=== PATIENT | male | born 1970 | race Caucasian/White ===

== ENCOUNTER 2019-02-22 07:37 | Observation (INO) | payer BC ==
--- NOTE | 2019-02-22 08:14 | ED ---
General Adult HPI - General Chief complaint: Chest Pain Stated complaint: pain in back between shoulder blades Time Seen by Provider: 02/22/19 07:40 Source: patient, RN notes reviewed Mode of arrival: ambulatory Limitations: no limitations - History of Present Illness Initial comments: This a 48-year-old male who presents emergency Department with a history of some anxiety and reflux. Patient denies any history of high blood pressure high cholesterol diabetes or smoking. Patient states he has no significant family history of heart disease or any family history of aneurysms. Patient states last night his stomach was upset quite a bit and making a lot of noise took some antacids that point. Patient states today while sitting in a meeting he started having some mid back pain between the shoulders last 1-2 minutes and then went away came back multiple times each time lasting 1-2 minutes and always going away. Patient denies any radiation of the pain. Patient denies any chest pain palpitations difficulty breathing shortness of breath. Patient denies any neck pain or arm pain. Patient states he has not had any pain since she's been in the emergency department. Patient states when it first occurred he thought it was his heartburn so he took some antacids and one aspirin. Patient states she does get anxiety quite a bit but he hasn't had back pain versus anxiety in the past. Patient denies any swelling to his legs or calf tenderness. Patient denies any abdominal pain patient denies nausea vomiting or diarrhea. Patient states he has had no upper respiratory infection and has been coughing lately. On the way here patient felt the pain was getting so severe that he wanted the dolly driver's faster. - Related Data Home Medications Medication Instructions Recorded Confirmed ALPRAZolam [Xanax] 0.125 mg PO DAILY PRN 02/22/19 02/22/19 Fish Oil/Dha/Epa [Fish Oil 1,200 1 cap PO DAILY 02/22/19 02/22/19 mg Fish Oil] Flaxseed Oil [[place]-3 Flaxseed Oil] 1,000 mg PO DAILY 02/22/19 02/22/19 Multivitamins, Thera [Multivitamin 1 tab PO DAILY 02/22/19 02/22/19 (formulary)] buPROPion HCL [Wellbutrin XL] 150 mg PO HS 02/22/19 02/22/19 Allergies Allergy/AdvReac Type Severity Reaction Status Date / Time No Known Allergies Allergy Verified 02/22/19 08:13 Review of Systems ROS Statement: Those systems with pertinent positive or pertinent negative responses have been documented in the HPI. ROS Other: All systems not noted in ROS Statement are negative. Past Medical History Past Medical History: GERD/Reflux, Hyperlipidemia History of Any Multi-Drug Resistant Organisms: None Reported Past Surgical History: Orthopedic Surgery, Tonsillectomy Past Psychological History: Anxiety Smoking Status: Never smoker Past Alcohol Use History: Occasional Past Drug Use History: None Reported General Exam - General Exam Comments Initial Comments: GENERAL: Patient is well-developed and well-nourished. Patient is nontoxic and well-h ydrated and is in mild distress. ENT: Neck is soft and supple. No significant lymphadenopathy is noted. Oropharynx is clear. Moist mucous membranes. Neck has full range of motion without eliciting any pain. EYES: The sclera were anicteric and conjunctiva were pink and moist. Extraocular move ments were intact and pupils were equal round and reactive to light. Eyelids were unremarkable. PULMONARY: Unlabored respirations. Good breath sounds bilaterally. No audible rales rhonchi or wheezing was noted. CARDIOVASCULAR: There is a regular rate and rhythm without any murmurs gallops or rubs. ABDOMEN: Soft and nontender with normal bowel sounds. No palpable organomegaly was noted. There is no palpable pulsatile mass. SKIN: Skin is clear with no lesions or rashes and otherwise unremarkable. NEUROLOGIC: Patient is alert and oriented x3. Cranial nerves II through XII are grossly intact. Motor and sensory are also intact. Normal speech, volume and content. Symmetrical smile. MUSCULOSKELETAL: Normal extremities with adequate strength and full range of motion. No lower e xtremity swelling or edema. No calf tenderness. LYMPHATICS: No significant lymphadenopathy is noted PSYCHIATRIC: Normal psychiatric evaluation. Limitations: no limitations Course Vital Signs 02/22/19 02/22/19 07:40 08:30 Temperature 97.9 F Pulse Rate 74 75 Respiratory 18 14 Rate Blood Pressure 128/84 138/97 O2 Sat by Pulse 98 96 Oximetry Medical Decision Making - Medical Decision Making EKG shows normal sinus rhythm at 71 bpm HI interval 254 QRS is 76 QT intervals 422 QTC is 458. Patient's EKG shows no ST segment elevation or depression or T wave abnormalities are noted. Patient's chest x-ray shows no acute abnormality. Patient states he has had no pain since being in the emergency department. - Lab Data Result diagrams: 02/22/19 08:05 02/22/19 08:05 Lab Results 02/22/19 02/22/19 02/22/19 Range/Units 08:05 08:05 08:05 WBC 7.2 (3.8-10.6) k/uL RBC 4.83 (4.30-5.90) m/uL Hgb 15.1 (13.0-17.5) gm/dL Hct 43.4 (39.0-53.0) % MCV 89.8 (80.0-100.0) fL MCH 31.2 (25.0-35.0) pg MCHC 34.8 (31.0-37.0) g/dL RDW 12.4 (11.5-15.5) % Plt Count 226 (150-450) k/uL Neutrophils % 74 % Lymphocytes % 16 % Monocytes % 7 % Eosinophils % 1 % Basophils % 1 % Neutrophils # 5.3 (1.3-7.7) k/uL Lymphocytes # 1.1 (1.0-4.8) k/uL Monocytes # 0.5 (0-1.0) k/uL Eosinophils # 0.1 (0-0.7) k/uL Basophils # 0.1 (0-0.2) k/uL PT 10.2 (9.0-12.0) sec INR 0.9 (<1.2) APTT 21.9 L (22.0-30.0) sec Sodium 139 (137-145) mmol/L Potassium 4.8 (3.5-5.1) mmol/L Chloride 106 (98-107) mmol/L Carbon Dioxide 21 L (22-30) mmol/L Anion Gap 12 mmol/L BUN 20 (9-20) mg/dL Creatinine 1.14 (0.66-1.25) mg/dL Est GFR (CKD-EPI)AfAm 87 (>60 ml/min/1.73 sqM) Est GFR (CKD-EPI)NonAf 75 (>60 ml/min/1.73 sqM) Glucose 109 H (74-99) mg/dL Calcium 10.0 (8.4-10.2) mg/dL Magnesium 2.0 (1.6-2.3) mg/dL Total Bilirubin 0.8 (0.2-1.3) mg/dL AST 46 (17-59) U/L ALT 57 (21-72) U/L Alkaline Phosphatase 62 (38-126) U/L Troponin I (0.000-0.034) ng/mL Total Protein 8.0 (6.3-8.2) g/dL Albumin 4.8 (3.5-5.0) g/dL 02/22/19 Range/Units 08:05 WBC (3.8-10.6) k/uL RBC (4.30-5.90) m/uL Hgb (13.0-17.5) gm/dL Hct (39.0-53.0) % MCV (80.0-100.0) fL MCH (25.0-35.0) pg MCHC (31.0-37.0) g/dL RDW (11.5-15.5) % Plt Count (150-450) k/uL Neutrophils % % Lymphocytes % % Monocytes % % Eosinophils % % Basophils % % Neutrophils # (1.3-7.7) k/uL Lymphocytes # (1.0-4.8) k/uL Monocytes # (0-1.0) k/uL Eosinophils # (0-0.7) k/uL Basophils # (0-0.2) k/uL PT (9.0-12.0) sec INR (<1.2) APTT (22.0-30.0) sec Sodium (137-145) mmol/L Potassium (3.5-5.1) mmol/L Chloride (98-107) mmol/L Carbon Dioxide (22-30) mmol/L Anion Gap mmol/L BUN (9-20) mg/dL Creatinine (0.66-1.25) mg/dL Est GFR (CKD-EPI)AfAm (>60 ml/min/1.73 sqM) Est GFR (CKD-EPI)NonAf (>60 ml/min/1.73 sqM) Glucose (74-99) mg/dL Calcium (8.4-10.2) mg/dL Magnesium (1.6-2.3) mg/dL Total Bilirubin (0.2-1.3) mg/dL AST (17-59) U/L ALT (21-72) U/L Alkaline Phosphatase (38-126) U/L Troponin I <0.012 (0.000-0.034) ng/mL Total Protein (6.3-8.2) g/dL Albumin (3.5-5.0) g/dL Disposition Clinical Impression: Atypical angina Disposition: ADMITTED IP TO THIS HOSP Referrals: Adalberto Wick DO [Primary Care Provider] - 1-2 days Time of Disposition: 09:47
[2019-02-22 08:46] LABS: INR 0.9 (<1.2); Partial Thromboplastin Time 21.9 sec (22.0-30.0); Prothrombin Time 10.2 sec (9.0-12.0)
[2019-02-22 08:49] LABS: Albumin 4.8 g/dL (3.5-5.0); Total Bilirubin 0.8 mg/dL (0.2-1.3)
[2019-02-22 08:50] LABS: Potassium 4.8 mmol/L (3.5-5.1)
--- NOTE | 2019-02-22 08:52 | XR ---
EXAMINATION TYPE: XR chest 2V DATE OF EXAM: 02/22/2019 COMPARISON: None INDICATION: Chest pain TECHNIQUE: Frontal and lateral views of the chest are obtained. FINDINGS: The heart size is normal. The pulmonary vasculature is normal. The lungs are clear. IMPRESSION: 1. No acute pulmonary process.
[2019-02-22 08:54] LABS: Basophils # (A) 0.1 k/uL (0-0.2); Basophils % (A) 1 %; Eosinophils # (A) 0.1 k/uL (0-0.7); Eosinophils % (A) 1 %; HCT 43.4 % (39.0-53.0); HGB 15.1 gm/dL (13.0-17.5); Lymphocytes # (A) 1.1 k/uL (1.0-4.8); Lymphocytes % (A) 16 %; MCH 31.2 pg (25.0-35.0); MCHC 34.8 g/dL (31.0-37.0); MCV 89.8 fL (80.0-100.0); Monocytes # (A) 0.5 k/uL (0-1.0); Monocytes % (A) 7 %; Neutrophils # (A) 5.3 k/uL (1.3-7.7); Neutrophils % (A) 74 %; Platelet Count 226 k/uL (150-450); RBC 4.83 m/uL (4.30-5.90); RDW 12.4 % (11.5-15.5); WBC 7.2 k/uL (3.8-10.6)
[2019-02-22] MEDS ORDERED: NITROGLYCERIN SL TABS 0.4 MG TAB SUBLINGUAL PRN (09:47)
[2019-02-22 10:03] VITALS: RESP 18
[2019-02-22 10:49] VITALS: BMI 28.7
[2019-02-22] MEDS ORDERED: NITROGLYCERIN OINT 1 INCH/GM PACKET TOPICAL SCH (12:00)
[2019-02-22] MEDS: amLODIPine 5 MG TAB PO SCH (13:28)
--- NOTE | 2019-02-22 14:28 | P.CRDCN ---
History of Present Illness History of present illness: This is a pleasant 48-year-old male past medical history significant for dyslipidemia and anxiety. He denies prior history of coronary artery disease or diabetes mellitus. He states his physician has told him he may likely require antihypertensives in the near future however currently he just takes [id number] herbal supplements. We have asked to see him in consultation secondary to chest discomfort. He states while at work this morning in a meeting he started feeling a burning achy sensation in his mid- upper back. No radiation to the arm, back, neck or jaw. He denies associated shortness of breath, dizziness, nausea, vomiting or diaphoresis. He said his co-workers told him he look joyce. He took an over the counter antacid, aspirin and half of a xanax with little to no relief. By the time he got to the hospital his symptoms had subsided. He is seen and examined sitting up in bed in no acute distress. He states he does continue to feel a dull achy feeling in the mid upper back. No pain in the chest throughout this episode. He has been struggling with anxiety for the recent 1 year and has had a couple what he calls anxiety attacks and has been evaluated at [facility] in [place] in October 2018 with a stress echo that he states was normal and he walked for 16 minutes on the treadmill. He has been following closely with his PCP and has been working on lowering his cholesterol with diet and exercise. He takes some herbal supplements but no prescribed meds for hypertension or dyslipidemia. EKG reveals sinus mechanism with no acute ST or T-wave abnormalities. Chest xray is negative for an acute cardiopulmonary process. Laboratory data reviewed, cardiac enzymes negative x1. He takes no daily cardiac medications. At the time of my exam: CONSTITUTIONAL: Denies fever. Denies chills. EYES: Denies blurred vision. Denies vision changes. Denies eye pain. EARS, NOSE, MOUTH & THROAT: Denies headache. Denies sore throat. Denies ear pain. CARDIOVASCULAR: Denies chest pain. Denies shortness of breath. Denies orthopnea. Denies PND. Denies palpitations. RESPIRATORY: Denies cough. GASTROINTESTINAL: Denies abdominal pain. Denies diarrhea. Denies constipation. Denies nausea. Denies vomiting. MUSCULOSKELETAL: Denies myalgias. INTEGUMENTARY: Denies pruitis. Denies rash. NEUROLOGIC: Denies numbness. Denies tingling. Denies weakness. PSYCHIATRIC: Denies anxiety. Denies depression. ENDOCRINE: Denies fatigue. Denies weight change. Denies polydipsia. Denies polyurina. GENITOURINARY: Denies burning, hematuria or urgency with micturation. HEMATOLOGIC: Denies history of anemia. Denies bleeding. Blood pressure 160/88 heart rate 65 afebrile maintaining oxygen saturation on room air GENERAL: This is a 48-year-old male in no apparent distress at the time of my examination. HEENT: Head is atraumatic, normocephalic. Pupils are equal, round. Sclerae anicteric. Conjunctivae are clear. Mucous membranes of the mouth are moist. Neck is supple. There is no jugular venous distention. No carotid bruit is heard. LUNGS: Clear to auscultation no wheezes, rales or rhonchi. No chest wall tenderness is noted on palpation or with deep breathing. HEART: Regular rate and rhythm without murmurs, rubs or gallops. S1 and S2 heard. ABDOMEN: Soft, nontender. Bowel sounds are heard. No organomegaly noted. EXTREMITIES: No evidence of peripheral edema and no calf tenderness noted. VASCULAR: Radial and dorsalis pedis pulses palpated, no evidence of clubbing. NEUROLOGIC: Patient is awake, alert and oriented x3. ASSESSMENT Back pain, atypical for angina. Hypertension Dyslipidemia Anxiety PLAN Initiate on amlodipine 5 mg daily and lopressor 12.5 mg BID. Obtain stat CT of the chest to assess the aorta. Obtain 2D echocardiogram and doppler study to assess cardiac structure and function. Continue to obtain serial cardiac enzymes to rule out an acute event. Request report of recent stress test at [facility] in [place] October 2018. If enzymes are normal he may be discharged this evening on new anti-hypertensive regimen. Follow up with Dr. Montesinos in 2 weeks. Thank you kindly for this consultation. Nurse Practitioner note has been reviewed, I agree with a documented findings and plan of care. Patient was seen and examined. Past Medical History Past Medical History: GERD/Reflux, Hyperlipidemia Additional Past Medical History / Comment(s): Pt/spouse state since summer 2018, pt has had on and off elevated blood pressures, past chest pain with numbness/tingling to L arm which pt associated with anxiety, stress test summer 2018 at [facility] states was normal, cough/body aches since 02/20/19, migraines. History of Any Multi-Drug Resistant Organisms: None Reported Past Surgical History: Orthopedic Surgery, Tonsillectomy Additional Past Surgical History / Comment(s): R shoulder injury with surgery, colonoscopy-normal. Past Anesthesia/Blood Transfusion Reactions: No Reported Reaction Smoking Status: Never smoker - Past Family History Mother Family Medical History: Hyperlipidemia Father Family Medical History: No Reported History Additional Family Medical History / Comment(s): Father is healthy. Medications and Allergies Home Medications Medication Instructions Recorded Confirmed Type ALPRAZolam [Xanax] 0.125 mg PO DAILY PRN 02/22/19 02/22/19 History Blood Pressure Wellness 2 cap PO DAILY 02/22/19 02/22/19 History Cholesterol Wellness 2 cap PO DAILY 02/22/19 02/22/19 History Fish Oil/Dha/Epa [Fish Oil 1,200 1 cap PO DAILY 02/22/19 02/22/19 History mg Fish Oil] Flaxseed Oil [[place]-3 Flaxseed Oil] 1,000 mg PO DAILY 02/22/19 02/22/19 History Multivitamins, Thera [Multivitamin 1 tab PO DAILY 02/22/19 02/22/19 History (formulary)] buPROPion HCL [Wellbutrin XL] 150 mg PO HS 02/22/19 02/22/19 History Allergies Allergy/AdvReac Type Severity Reaction Status Date / Time No Known Allergies Allergy Verified 02/22/19 08:13 Physical Exam Vitals: Vital Signs Temp Pulse Pulse Resp BP BP Pulse Ox 02/22/19 10:19 98.1 F 65 18 160/88 98 02/22/19 10:02 99.2 F 69 18 151/91 96 02/22/19 08:30 75 14 138/97 96 02/22/19 07:40 97.9 F 74 18 128/84 98 Intake and Output 02/21/19 02/22/19 02/22/19 22:59 06:59 14:59 Other: Weight 104.326 kg Results 02/22/19 08:05 02/22/19 08:05 Cardiac Enzymes 02/22/19 02/22/19 Range/Units 08:05 08:05 AST 46 (17-59) U/L Troponin I <0.012 (0.000-0.034) ng/mL Coagulation 02/22/19 Range/Units 08:05 PT 10.2 (9.0-12.0) sec APTT 21.9 L (22.0-30.0) sec CBC 02/22/19 Range/Units 08:05 WBC 7.2 (3.8-10.6) k/uL RBC 4.83 (4.30-5.90) m/uL Hgb 15.1 (13.0-17.5) gm/dL Hct 43.4 (39.0-53.0) % Plt Count 226 (150-450) k/uL Comprehensive Metabolic Panel 02/22/19 Range/Units 08:05 Sodium 139 (137-145) mmol/L Potassium 4.8 (3.5-5.1) mmol/L Chloride 106 (98-107) mmol/L Carbon Dioxide 21 L (22-30) mmol/L BUN 20 (9-20) mg/dL Creatinine 1.14 (0.66-1.25) mg/dL Glucose 109 H (74-99) mg/dL Calcium 10.0 (8.4-10.2) mg/dL AST 46 (17-59) U/L ALT 57 (21-72) U/L Alkaline Phosphatase 62 (38-126) U/L Total Protein 8.0 (6.3-8.2) g/dL Albumin 4.8 (3.5-5.0) g/dL Current Medications Generic Name Dose Route Start Last Admin Trade Name Freq PRN Reason Stop Dose Admin Aspirin 325 mg 02/23/19 09:00 Aspirin PO DAILY DARLEEN Nitroglycerin 0.4 mg 02/22/19 09:47 Nitrostat SUBLINGUAL Q5M PRN Chest Pain Nitroglycerin 1 inch 02/22/19 12:00 Nitro-Bid Oint TOPICAL Q6HR DARLENE Intake and Output 02/21/19 02/22/19 02/22/19 22:59 06:59 14:59 Other: Weight 104.326 kg Patient Weight 02/23/19 06:59 Weight 104.326 kg 02/22/19 08:05 02/22/19 08:05
[2019-02-22 14:45] LABS: Cholesterol 165 mg/dL (<200); HDL Cholesterol 32 mg/dL (40-60); LDL Cholesterol,Calculated 96 mg/dL (0-99); Triglycerides 186 mg/dL (<150)
--- NOTE | 2019-02-22 15:26 | CT ---
CT CHEST FOR PULMONARY EMBOLISM. EXAMINATION TYPE: CT angio chest DATE OF EXAM: 02/22/2019 INDICATION: Pain between the shoulder blades CT DLP: 595.4 mGycm, Automated exposure control for dose reduction was used. CONTRAST: Patient injected with 100 mL of Isovue 370. COMPARISON: None TECHNIQUE: CT of the chest is performed on a spiral scan at 2 mm thick sections. Study is performed with intravenous contrast timed for evaluation for pulmonary embolism. This will limit additional po rtions of the evaluation. 3-D MIP images reconstructed by the technologist are reviewed on the compu ter in the coronal and sagittal planes. FINDINGS: No obvious persistent filling defects are evident to suggest an acute pulmonary embolism. Contrast ti hector was for evaluation for aorta. No mediastinal or hilar adenopathy enlarged by CT criteria is evident. The ascending aorta diameter at the level of the main pulmonary artery is 3.2 cm. The main pulmonary artery diameter at the bifur cation is 2.2 cm. No dissection is evident. The aortic root measures 2.8 cm. Aortic arch measures 2.2 cm. Descending thoracic aorta tapers in its visualized course. There is mild infiltrate within the azygos esophageal recess. Lung windows are otherwise clear. There is moderate fatty infiltration to the liver. Upper abdomen is otherwise unremarkable. IMPRESSIONS: 1. Mild fusiform prominence of the mid ascending thoracic aorta with an AP diameter of 3.2 cm. 2. No aortic dissection is evident. 3. Mild infiltrate within the azygos esophageal recess.
[2019-02-22] MEDS: METOPROLOL TARTRATE 12.5 MG TAB PO SCH (20:38)
[2019-02-22] MEDS ORDERED: BUTALB/APAP/CAFF 50-325-40MG TAB PO PRN ×2 (20:43)
[2019-02-22] MEDS: guaiFENesin-Coden 100-10MG/5ML 10 ML CUP PO PRN (23:12)
--- NOTE | 2019-02-23 06:55 | ECHOF ---
Referral Reason:cp MEASUREMENTS -------- HEIGHT: 190.5 cm WEIGHT: 104.3 kg BP: 168/88 RVIDd: 3.4 cm (< 3.3) IVSd: 1.1 cm (0.6 - 1.1) LVIDd: 5.1 cm (3.9 - 5.3) LVPWd: 0.8 cm (0.6 - 1.1) IVSs: 1.5 cm LVIDs: 3.4 cm LVPWs: 1.5 cm LA Diam: 3.6 cm (2.7 - 3.8) LAESV Index (A-L): 21.44 ml/m Ao Diam: 3.3 cm (2.0 - 3.7) AV Cusp: 2.3 cm (1.5 - 2.6) MV EXCURSION: 14.577 mm (> 18.000) MV EF SLOPE: 102 mm/s (70 - 150) EPSS: 1.0 cm MV E Kermit: 0.98 m/s MV DecT: 248 ms MV A Kermit: 0.73 m/s MV E/A Ratio: 1.34 TAPSE: 21.02 mm FINDINGS -------- Sinus rhythm. This was a technically adequate study. The left ventricular size is normal. There is borderline concentric left ventricular hypertrophy. Overall left ventricular systolic function is normal with, an EF between 60 - 65 %. The diastolic filling pattern is normal for the age of the patient 9.99. The right ventricle is mildly enlarged. Normal LA size by volume 22+/-6 ml/m2. The right atrium is normal in size. Interatrial and interventricular septum intact. The aortic valve is trileaflet and appears structurally normal. Mild mitral regurgitation is present. The tricuspid valve appears structurally normal. There is no pulmonic regurgitation present. The aortic root size is normal. Normal inferior vena cava with normal inspiratory collapse consistent with estimated right atrial pre ssure of 5 mmHg. There is no pericardial effusion. CONCLUSIONS -------- 1. Sinus rhythm. 2. This was a technically adequate study. 3. The left ventricular size is normal. 4. There is borderline concentric left ventricular hypertrophy. 5. Overall left ventricular systolic function is normal with, an EF between 60 - 65 %. 6. The diastolic filling pattern is normal for the age of the patient 9.99 7. The right ventricle is mildly enlarged. 8. Normal LA size by volume 22+/-6 ml/m2. 9. The right atrium is normal in size. 10. Interatrial and interventricular septum intact. 11. The aortic valve is trileaflet and appears structurally normal. 12. Mild mitral regurgitation is present. 13. The tricuspid valve appears structurally normal. 14. There is no pulmonic regurgitation present. 15. The aortic root size is normal. 16. Normal inferior vena cava with normal inspiratory collapse consistent with estimated right atrial pressure of 5 mmHg. 17. There is no pericardial effusion. MORNING NEWS ANCHOR: Meka Hogue RDCS
[2019-02-23 07:46] VITALS: BP 116/80; PULSE 65; TEMP 98.8
[2019-02-23] MEDS ORDERED: ASPIRIN 81 MG PO SCH (09:00)
[2019-02-23] MEDS: METOPROLOL TARTRATE 12.5 MG TAB PO SCH (09:00)
[2019-02-23] MEDS: amLODIPine 5 MG TAB PO SCH (09:00)
[2019-02-23] MEDS ORDERED: ASPIRIN 325 MG TAB PO SCH (09:00)
[2019-02-23] MEDS: guaiFENesin-Coden 100-10MG/5ML 10 ML CUP PO PRN (09:00)
--- NOTE | 2019-02-23 09:09 | P.PN ---
Subjective This is a pleasant 48-year-old male past medical history significant for dyslipidemia and anxiety. He denies prior history of coronary artery disease or diabetes mellitus. He states his physician has told him he may likely require antihypertensives in the near future however currently he just takes [id number] herbal supplements. He is seen and examined sitting up in the chair in no acute distress. He states he did have another episode of chest discomfort last night in the midst of a coughing spell. The pain was exacerbated by coughing and improved when the coughing subsided. Recent stress test report reviewed and revealed excellent exercise tolerance with no evidence of stress induced ischemia. Blood pressure this morning 116/80 heart rate 65 afebrile and maintaining oxygen saturation on room air. CT chest negative for PE, mild fusiform prominence of the mid ascending thoracic aorta with AP diameter 3.2 cm, no aortic dissection. Echocardiogram revealed preserved LV systolic function with EF 60-65%, normal diastolic filling pattern and mild MR. GENERAL: This is a 48-year-old male in no apparent distress at the time of my examination. HEENT: Head is atraumatic, normocephalic. Pupils are equal, round. Sclerae anicteric. Conjunctivae are clear. Mucous membranes of the mouth are moist. Neck is supple. There is no jugular venous distention. No carotid bruit is heard. LUNGS: Clear to auscultation no wheezes, rales or rhonchi. No chest wall tenderness is noted on palpation or with deep breathing. HEART: Regular rate and rhythm without murmurs, rubs or gallops. S1 and S2 heard. EXTREMITIES: No evidence of peripheral edema and no calf tenderness noted. ASSESSMENT Back pain, atypical for angina. Hypertension Dyslipidemia Anxiety PLAN Stable for discharge from a cardiac perspective. Continue current medical regimen. Follow-up in the office with Dr. Montesinos in 2 weeks. Nurse Practitioner note has been reviewed, I agree with a documented findings and plan of care. Patient was seen and examined. Objective - Vital Signs Vital signs: Vital Signs Temp 98.8 F 02/23/19 07:20 Pulse 65 02/23/19 07:20 Resp 18 02/23/19 07:20 BP 116/80 02/23/19 07:20 Pulse Ox 97 02/23/19 07:20 Intake & Output 02/22/19 02/23/19 02/23/19 18:59 06:59 18:59 Intake Total 820 Balance 820 Weight 104.326 kg Intake: Oral 420 Other 400 Other: # Voids 1 1 - Labs CBC & Chem 7: 02/22/19 08:05 02/22/19 08:05 Labs: Abnormal Lab Results - Last 24 Hours (Table) 02/22/19 Range/Units 08:05 Triglycerides 186 H (<150) mg/dL HDL Cholesterol 32 L (40-60) mg/dL
--- NOTE | 2019-02-23 17:01 | HP ---
HISTORY AND PHYSICAL CHIEF COMPLAINT: Posterior chest pain. HISTORY OF PRESENT ILLNESS: This is the first admission for this 48-year-old white male, a supervisor [employer], who has been under some stress. He is fairly healthy. Apparently his doctor has been telling him lately that his blood pressure is borderline as well as his lipids and that he may require medical management for these problems, but he has not started on anything yet. He developed a sharp pain in the posterior chest. It became quite severe and he presented to the emergency room. He has had a URI and bronchitis with a cough for 3 weeks. He had no diaphoresis or shortness of breath. Studies in the ER were negative. He has had a little trouble with a generalized headache in the last several days as well. He is under a fair amount of stress at work. His family history is negative. REVIEW OF SYSTEMS: He has had no neurologic problems, difficulty with the vision or the hearing, cough, hemoptysis, pleuritic component, throbbing component, murmurs, rheumatic fever, palpitations, orthopnea, PND, abdominal pain, nausea, vomiting, hematemesis, indigestion, melena, hematochezia, jaundice, hepatitis, cirrhosis, hematuria, frequency, urgency, dysuria, renal failure, diabetes, etc. PAST MEDICAL HISTORY: Childhood diseases none. Major illnesses none. infections none. ALLERGIES NONE. Medications none. Past hospitalizations and operations: He had a procedure on his right shoulder and he has had a T&A. Family history and personal and social histories are unremarkable and noncontributory. There is no heart disease in his family. He does not smoke. He drinks very little alcohol. His blood pressure has been occasionally running around 90 diastolically. PHYSICAL EXAMINATION: Blood pressure 150/90 with a pulse of 78, respirations of 27, and he is afebrile. In general he appeared to be well developed, well nourished, in no acute distress. Skin color was normal. Skin was warm and dry. Lymph nodes were not enlarged. Head, ears, eyes, nose, mouth and throat were normal. Neck veins were not distended. Thyroid was not enlarged. Chest was clear. There were no rubs. There was no tenderness over the dorsal spine. Cardiac exam was normal. There were no murmurs or extra sounds. The abdomen was soft and nontender without any visceromegaly or masses. Bowel sounds were present. Flanks were nontender. Extremities were normal. Neurologically he was intact. IMPRESSION: 1. Posterior chest pain. 2. History of hypertension. 3. History of hyperlipidemia. 4. Anxiety. 5. Upper respiratory infection and bronchitis. PLAN: 1. Bed rest. 2. IV fluids. 3. Serial EKGs and enzymes. 4. CTA of the chest to rule out aortic dissection or aneurysm. 5. Cardiology consult. BERKLEY / MARY ELLEN: [id number] /
--- NOTE | 2019-02-25 09:45 | DS ---
DISCHARGE SUMMARY CHIEF COMPLAINT: Posterior chest pain. HISTORY OF PRESENT ILLNESS AND PHYSICAL EXAMINATION: Details of this man's history and physical can be found in the initial workup. LABORATORY STUDIES: While he was in the hospital he had laboratory studies, details of which can be found in the laboratory section of his chart. COURSE IN THE HOSPITAL: After admission he was placed on bedrest and started on intravenous fluids. Cardiac enzymes were normal. CT of the chest failed to demonstrate any evidence of pulmonary embolism or aortic dissection or aneurysm. The only problem he had in the hospital was a persistent cough probably secondary to his virus. He was seen by Cardiology. He was doing well and it was felt that he could be discharged and he will go home on his usual activity, diet, and medication. It was suggested that he continue to follow his blood pressure and lipid level. He will either follow up with his own physician or with us in a few days. FINAL DIAGNOSES: 1. Posterior chest pain. 2. History of hypertension. 3. History of hyperlipidemia. OPERATIONS: None. CONSULTATIONS: Cardiology. He is improved. MMODL / SHIRAN: [id number] /
== END 2019-02-23 13:01 | disposition home or self-care (01) ==
LOC: EC 07:37 → 1SOBS 09:47
PROVIDERS: ADMIT Family Medicine; ATTEND Family Medicine
DX: R07.89 Other chest pain (principal); F41.9 Anxiety disorder, unspecified; K21.9 Gastro-esophageal reflux disease without esophagitis; E78.5 Hyperlipidemia, unspecified; J40 Bronchitis, not specified as acute or chronic; J06.9 Acute upper respiratory infection, unspecified; M54.6 Pain in thoracic spine; G43.909 Migraine, unspecified, not intractable, without status migrainosus; I10 Essential (primary) hypertension; Z79.899 Other long term (current) drug therapy; Z56.6 Other physical and mental strain related to work; Z87.09 Personal history of other diseases of the respiratory system; Z83.49 Family history of other endocrine, nutritional and metabolic diseases
CPT/HCPCS: 99285; 36415; 93005; 93306; 80061; 80053; 83735; 84484; 85025; 85610; 85730; 87502; 71046; 71275; G0378 ×2; Q9967